=== PATIENT | female | born 1960 | race Asian ===

== ENCOUNTER 2019-10-27 17:35 | Emergency (ER) | payer OTHER ==
[~2019-10-27] VITALS: Ht 152.4 cm; Wt 95.3 kg
[2019-10-27 19:03] LABS: PLATELET COUNT 316 K/uL (152-353)
[2019-10-27 19:23] VITALS: BP 132/80; TEMP 98.3
[2019-10-27] MEDS ORDERED: Tylenol PO (22:12)
[2019-10-27] MEDS ORDERED: TYLEN RE (22:14)
[2019-10-27] MEDS ORDERED: CLON0.5T36 PO (22:16)
[2019-10-27] MEDS ORDERED: DOCU100C10 PO (22:17)
[2019-10-27] MEDS ORDERED: FOLIC ACID800 MC1 PO (22:19)
[2019-10-27] MEDS ORDERED: GERI-LANTA PO (22:23)
[2019-10-27] MEDS ORDERED: BUCKLEYS C100 MG/5 M PO (22:25)
[2019-10-27] MEDS ORDERED: HALO1TAB3 PO (22:27)
[2019-10-27] MEDS ORDERED: IMODIUM A-D PO (22:29)
[2019-10-27] MEDS ORDERED: MIDODRINE5 MG PO (22:32)
[2019-10-27] MEDS ORDERED: LOPERAMIDE2 MG PO (22:33)
[2019-10-27] MEDS ORDERED: THIA100T8 PO (22:54)
[2019-10-27] MEDS ORDERED: MULT VITAMI1 PO (23:00)
[2019-10-27] MEDS ORDERED: MILK OF MAGNESI1 SUS PO (23:03)
[2019-10-27] MEDS ORDERED: [UNRECOGNIZED DRUG - CODE] PO (23:06)
== END 2019-10-27 19:23 | disposition other institution (70) ==
LOC: ED 17:35
PROVIDERS: Family Medicine
DX: F03.91 Unspecified dementia, unspecified severity, with behavioral disturbance (principal); Z04.6 Encounter for general psychiatric examination, requested by authority
CPT/HCPCS: 80053; 81000; 85027; 93005; 99283